=== PATIENT | male | born 1985 | race Caucasian/White ===

== ENCOUNTER 2022-12-01 14:41 | Emergency (ER) | payer BC ==
[~2022-12-01] VITALS: Ht 177.8 cm; Wt 83.9 kg
[2022-12-01] MEDS ORDERED: NACL 0.9% 1,000 ML IV ONE (14:45)
--- NOTE | 2022-12-01 14:52 | NUR ---
EKG performed at by [facility]. Physician given copy of EKG for review.
[2022-12-01 14:54] VITALS: BP_SYST 130; PULSE 95; RESP 16; TEMP 97.8; O2SAT 99
--- NOTE | 2022-12-01 14:54 | NUR ---
ER at bedside examining patient.
== END 2022-12-01 14:54 | disposition left against medical advice (07) ==
LOC: SED 14:41
DX: R41.82 Altered mental status, unspecified (principal); Z79.899 Other long term (current) drug therapy
CPT/HCPCS: 93005; 99283